=== PATIENT | female | born 1955 | race Caucasian/White ===

== ENCOUNTER 2024-11-01 10:28 | Emergency (ER) | payer OTHER, MEDICARE ==
[2024-11-01 10:40] VITALS: RESP 18; BMI 16.9
[2024-11-01] MEDS: SODIUM CHLORIDE 1,000 ML IV STA (11:20)
[2024-11-01 11:33] LABS: HEMATOCRIT 42.9 % (34.1-44.9); HEMOGLOBIN 13.6 g/dL (11.2-15.7); MCHC 31.7 g/dl (32.2-35.5); MEAN CELL VOLUME 94.1 fl (79.4-94.8); PLATELET COUNT 353 x10^3/uL (182-369); RDW 12.4 % (12.4-16.4)
[2024-11-01] MEDS ORDERED: ALBUTEROL SO4 2.5/IPRATROPIUM 0.5 INH SOL 3 ML VIAL.NEB. NEB ONE ×2 (11:42→12:24)
[2024-11-01] MEDS ORDERED: methylPREDNISolone NA SUCC 125 MG/2 ML VIAL ONE (11:43)
[2024-11-01] MEDS: ALBUTEROL SO4 2.5/IPRATROPIUM 0.5 INH SOL 3 ML VIAL.NEB. NEB ONE ×2 (11:53→12:27)
[2024-11-01] MEDS: methylPREDNISolone NA SUCC 125 MG/2 ML VIAL IVPB ONE (11:53)
[2024-11-01 11:54] LABS: CHLORIDE 103 mmol/L (98-107); POTASSIUM 3.6 mmol/L (3.5-5.1); SODIUM 139 mmol/L (136-145)
[2024-11-01 11:56] LABS: CALCIUM 9.5 mg/dL (8.5-10.1)
[2024-11-01 11:57] LABS: ALBUMIN 3.8 g/dl (3.4-5.0); ANION GAP 7 mmol/L (4-13); BLOOD UREA NITROGEN 14.8 mg/dL (7-18); CO2 29 mmol/L (21-32); GLUCOSE,RANDOM 97 mg/dL (74-106)
[2024-11-01 12:00] LABS: CREATININE 0.7 mg/dL (0.55-1.3); SGOT/AST 29 U/L (15-37); SGPT/ALT 27 U/L (13-61)
[2024-11-01 12:01] LABS: BILIRUBIN,TOTAL 0.4 mg/dL (0.2-1)
[2024-11-01 12:02] LABS: TOT PROT 7.7 g/dl (6.4-8.2)
[2024-11-01 12:03] LABS: ALK PHOS 163 U/L (45-117)
[2024-11-01 12:27] VITALS: TEMP 98.5
[2024-11-01] MEDS ORDERED: ALBUTEROL SO4 HFA INHALER IH PRN (12:38)
[2024-11-01] MEDS ORDERED: ALBUTEROL SO4 HFA INHALER IH ONE (14:09)
[2024-11-01 14:17] VITALS: BP 142/73; PULSE 110
== END 2024-11-01 14:29 | disposition home or self-care (01) ==
LOC: JER 10:28
PROC: 3E033GC Introduction of Other Therapeutic Substance into Peripheral Vein, Percutaneous Approach (ICD-10-PCS; principal; 2024-11-01)
PROC: 3E0337Z Introduction of Electrolytic and Water Balance Substance into Peripheral Vein, Percutaneous Approach (ICD-10-PCS; 2024-11-01)
PROC: 3E0F7GC Introduction of Other Therapeutic Substance into Respiratory Tract, Via Natural or Artificial Opening (ICD-10-PCS; 2024-11-01)
PROC: 3E0F7GC Introduction of Other Therapeutic Substance into Respiratory Tract, Via Natural or Artificial Opening (ICD-10-PCS; 2024-11-01)
DX: J45.21 Mild intermittent asthma with (acute) exacerbation (principal); R06.02 Shortness of breath; R00.0 Tachycardia, unspecified
CPT/HCPCS: 0241U-QW; 36415; 71045-TC-FY; 80053; 82550; 82553; 84484; 85027; 93005; 93010; 99285-25